=== PATIENT | male | born 1965 | race American Indian/Alaskan Native ===

== ENCOUNTER 2018-06-04 14:23 | Emergency (ER) | payer BC, OTHER ==
[2018-06-04 19:56] LABS: Bilirubin,Urine NEG (Negative); Blood,Urine MOD (Negative); Color,Urine Yellow (Yellow); Mucus,Urine 3+ /HPF; Protein,Urine <15 mg/dL mg/dL (Negative); Urobilinogen,Urine < 2.0 mg/dL (<2.0)
--- NOTE | 2018-06-04 20:07 | Emergency Department Report ---
ED Abdominal Pain HPI - General Chief Complaint: Abdominal Pain Stated Complaint: ABD PAIN Time Seen by Provider: 06/04/18 19:38 Source: patient Mode of arrival: Ambulatory Limitations: No Limitations - History of Present Illness Initial Comments: 52-year-old Chinese male presents to the emergency room for left-sided abdominal pain 2 months. Patient states it has become worse. Patient denies any nausea vomiting or diarrhea. Patient reports that the pain is intermittent and is worse after standing for long. The timing. 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 Patient reports that the pain does not radiate. He does not have a primary care provider. Patient does report that ibuprofen helps. He denies any testicular pain reports he'll sometimes has pain with ejaculation. Denies any blood in urine but feels that his urine is dark he reports is drinking water more now. Patient says he stopped drinking beer. Patient reports he has a past medical history of appendectomy no other past medical history currently takes no medications has no known drug allergies. MD Complaint: abdominal pain -: month(s) (2) Location: [facility] Radiation: none Migration to: no migration Severity: severe Severity scale (0 -10): 8 - Related Data Previous Rx's Medication Instructions Recorded Last Taken Type Cyclobenzaprine [Flexeril 10mg] 10 mg PO TID PRN #30 tablet 07/04/14 Unknown Rx Sulfamethoxazole/Trimethoprim 1 each PO BID #20 tablet 07/04/14 Unknown Rx [Bactrim Ds] predniSONE [Deltasone] 40 mg PO QDAY #10 tab 07/04/14 Unknown Rx Ibuprofen [Motrin 600 MG tab] 800 mg PO Q8H PRN #30 tablet 06/04/18 Unknown Rx traMADol [Ultram 50 MG tab] 50 mg PO Q4HR PRN #12 tablet 06/04/18 Unknown Rx Allergies Allergy/AdvReac Type Severity Reaction Status Date / Time No Known Allergies Allergy Verified 06/04/18 14:28 ED Review of Systems ROS: Stated complaint: ABD PAIN Other details as noted in HPI Comment: All other systems reviewed and negative Gastrointestinal: abdominal pain ED Past Medical Hx - Past Medical History Previous Medical History?: No - Surgical History Past Surgical History?: Yes Hx Appendectomy: Yes - Social History Smoking Status: Former Smoker Substance Use Type: Alcohol, Marijuana - Medications Home Medications: Home Medications Medication Instructions Recorded Confirmed Last Taken Type Cyclobenzaprine [Flexeril 10mg] 10 mg PO TID PRN #30 tablet 07/04/14 Unknown Rx Sulfamethoxazole/Trimethoprim 1 each PO BID #20 tablet 07/04/14 Unknown Rx [Bactrim Ds] predniSONE [Deltasone] 40 mg PO QDAY #10 tab 07/04/14 Unknown Rx Ibuprofen [Motrin 600 MG tab] 800 mg PO Q8H PRN #30 tablet 06/04/18 Unknown Rx traMADol [Ultram 50 MG tab] 50 mg PO Q4HR PRN #12 tablet 06/04/18 Unknown Rx ED Physical Exam - General Limitations: No Limitations General appearance: alert, in no apparent distress - Head Head exam: Present: atraumatic, normocephalic - Eye Eye exam: Present: normal appearance - ENT ENT exam: Present: mucous membranes moist - Neck Neck exam: Present: normal inspection - Respiratory Respiratory exam: Present: normal lung sounds bilaterally. Absent: respiratory distress - Cardiovascular Cardiovascular Exam: Present: regular rate, normal rhythm. Absent: systolic murmur, diastolic murmur, rubs, gallop - GI/Abdominal GI/Abdominal exam: Present: soft, normal bowel sounds. Absent: distended, tenderness, guarding, rebound - exam: Present: normal inspection. Absent: testicular tenderness, scrotal swelling External exam: Present: normal external exam - Extremities Exam Extremities exam: Present: full ROM - Back Exam Back exam: Present: normal inspection, full ROM - Neurological Exam Neurological exam: Present: alert, oriented X3, normal gait - Psychiatric Psychiatric exam: Present: normal affect, normal mood - Skin Skin exam: Present: warm, dry, intact, normal color. Absent: rash ED Course Vital Signs 06/04/18 06/04/18 06/04/18 14:28 20:21 23:30 Temperature 97.8 F Pulse Rate 77 66 Respiratory 18 18 16 Rate Blood Pressure 157/97 Blood Pressure 171/94 [Left] O2 Sat by Pulse 98 98 Oximetry ED Medical Decision Making - Lab Data Result diagrams: 06/04/18 20:17 06/04/18 20:17 - Radiology Data Radiology results: report reviewed FINDINGS: There is mild subsegmental atelectasis in both lung bases. There are no pleural effusions. The heart size is at the upper limit of normal. There are 2 focal areas of low attenuation within the liver. The largest measures 1.8 centimeters x 1.5 centimeters in cross-section. These probably represent hepatic cysts. The pancreas and spleen appear normal. The gallbladder is present. There is no biliary dilatation. There is an ovoid mass in the medial limb of the right adrenal gland. This measures 2.6 centimeters x 1.5 centimeters in cross-section. It probably represents an adrenal adenoma. Both kidneys appear normal in size and configuration. The abdominal aorta has a normal caliber. There is no retroperitoneal adenopathy. The unopacified gastrointestinal tract is unremarkable. The appendix is not visible and may have been removed. The bladder, seminal vesicles and prostate are unremarkable. 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 There is severe disc space narrowing at L5-S1. IMPRESSION: Probable hepatic cysts. Probable right adrenal adenoma. Degenerative disease in the lower lumbar spine. Transcribed By: [facility] Dictated By: BILL GALLO MD Electronically Authenticated By: BILL GALLO MD Signed Date/Time: 06/04/182205 DD/ 07 TD/TT: 06/04/182207 - Medical Decision Making Patient has been evaluated by this provider in fast track. Percocet given for pain management CT of abdomen as well as CBC CMP and urinalysis Discussed patient that he has a few cysts on the liver and a right adrenal adenoma and severe degenerative disc disease. Status the patient I will refer her to patient case coordinator liver specialist and her primary care provider. Patient be discharged home on tramadol and ibuprofen. Patient verbalizes understanding Critical care attestation.: If time is entered above; I have spent that time in minutes in the direct care of this critically ill patient, excluding procedure time. ED Disposition Clinical Impression: Liver cyst, Degenerative disc disease at L5-S1 level Adrenal adenoma Qualifiers: Laterality: right Qualified Code(s): D35.01 - Benign neoplasm of right adrenal gland Disposition: - TO HOME OR SELFCARE Is pt being admited?: No Does the pt Need Aspirin: No Condition: Stable Instructions: Degenerative Disc Disease (ED) Additional Instructions: Please take pain medication as needed. Please follow-up with the specialist that I have listed below. Prescriptions: Ibuprofen [Motrin 600 MG tab] 800 mg PO Q8H PRN #30 tablet PRN Reason: Pain traMADol [Ultram 50 MG tab] 50 mg PO Q4HR PRN #12 tablet PRN Reason: Pain Referrals: PRIMARY CARE, [Primary Care Provider] - 3-5 Days AMADO VALENZUELA MD [Staff Physician] - 3-5 Days KYLIE TALAVERA JR, MD [Staff Physician] - 3-5 Days [facility] [Provider Group] - 3-5 Days VINNY HOWE MD [Staff Physician] - 3-5 Days Forms: Accompanied Note, Work/School Release Form(ED)
[2018-06-04] MEDS ORDERED: NORCO 5/325 PO ONE (20:08)
[2018-06-04 20:49] LABS: Basophils # (Auto) 0.1 K/mm3 (0.0-0.1); Basophils % (Auto) 0.9 % (0.0-1.8); Eosinophils # (Auto) 0.2 K/mm3 (0.0-0.4); Eosinophils % (Auto) 2.1 % (0.0-4.3); Hematocrit 42.6 % (35.5-45.6); Hemoglobin 13.9 gm/dl (11.8-15.2); Lymphocytes # (Auto) 3.6 K/mm3 (1.2-5.4); Lymphocytes % (Auto) 34.2 % (13.4-35.0); Mean Corpuscular HGB Conc 33 % (32-34); Mean Corpuscular Volume 88 fl (84-94); Monocytes # (Auto) 0.6 K/mm3 (0.0-0.8); Monocytes % (Auto) 5.8 % (0.0-7.3); Platelet Count 266 K/mm3 (140-440); Red Blood Count 4.83 M/mm3 (3.65-5.03); Red Cell Distribution Width 14.5 % (13.2-15.2)
[2018-06-04 21:13] LABS: Alanine Aminotransferase 20 units/L (7-56); Albumin 4.8 g/dL (3.9-5); BUN/Creatinine Ratio 14; Blood Urea Nitrogen 17 mg/dL (9-20); Calcium 9.7 mg/dL (8.4-10.2); Hemolysis Index 31
--- NOTE | 2018-06-04 22:06 | Cat Scan Report ---
FINAL REPORT PROCEDURE: CT abdomen and pelvis with contrast. TECHNIQUE: Computerized axial tomography of the abdomen and pelvis was performed after the IV inject ion of iodinated nonionic contrast. HISTORY: Left-sided abdominal pain. COMPARISON: No prior studies are available for comparison. FINDINGS: There is mild subsegmental atelectasis in both lung bases. There are no pleural effusions. The heart size is at the upper limit of normal. There are 2 focal areas of low attenuation within the liver. Th e largest measures 1.8 centimeters x 1.5 centimeters in cross-section. These probably represent hepat ic cysts. The pancreas and spleen appear normal. The gallbladder is present. There is no biliary dila tation. There is an ovoid mass in the medial limb of the right adrenal gland. This measures 2.6 centi meters x 1.5 centimeters in cross-section. It probably represents an adrenal adenoma. Both kidneys ap pear normal in size and configuration. The abdominal aorta has a normal caliber. There is no retroper itoneal adenopathy. The unopacified gastrointestinal tract is unremarkable. The appendix is not visib le and may have been removed. The bladder, seminal vesicles and prostate are unremarkable. There is s evere osteoarthritis involving the facet joints in the lower lumbar spine. There is severe disc space narrowing at L5-S1. IMPRESSION: Probable hepatic cysts. Probable right adrenal adenoma. Degenerative disease in the lower lumbar spin e.
[2018-06-04 23:31] VITALS: BP 171/94
== END 2018-06-04 23:30 | disposition home or self-care (01) ==
LOC: ED 14:23
DX: K76.89 Other specified diseases of liver (principal); M51.36 Other intervertebral disc degeneration, lumbar region; D35.01 Benign neoplasm of right adrenal gland; Z90.49 Acquired absence of other specified parts of digestive tract; Z87.891 Personal history of nicotine dependence
CPT/HCPCS: 36415; 74177; 80053; 81001; 85025; 99284; Q9967